=== PATIENT | female | born 1975 | race Caucasian/White ===

== ENCOUNTER 2023-09-24 14:04 | Emergency (ER) | payer SELFPAY ==
--- NOTE | ~2023-09-24 | XR_ITS ---
EXAM: XR elbow LT min 3V DATE: 09/24/2023 14:21 HISTORY: Trauma- fell landed on Lt. arm. Pain in Lt. elbow . COMPARISON: None available. FINDINGS: Normal mineralization. No fracture or dislocation. No lytic or blastic lesion. Joint space s are maintained. No erosion or periosteal change. Posterior soft tissue swelling. IMPRESSION: No acute osseous finding in the left elbow. Reviewed, dictated and finalized at location K.
[2023-09-24 14:07] VITALS: BP 112/82; PULSE 112; RESP 19; TEMP 36.6; O2SAT 98
--- NOTE | 2023-09-24 14:09 | ED.GENADULT ---
HPI - General Adult General Chief complaint: Extremity Injury, Upper Stated complaint: L arm pain Time Seen by Provider: 09/24/23 14:08 Source: patient Mode of arrival: ambulatory Limitations: no limitations History of Present Illness HPI narrative: patient states fell in the shower hit her elbow left side complains of pain redness and swelling without any laceration. took ibuprofen 2 tablets today. Denies any Chills history rheumatoid arthritis diabetes or other joint disease her HIV or loss of consciousness she said she also fell on her butt and has a bruise there but does not hurt. Denies any other injuries or other swelling. Otherwise has been eating drinking voiding and stooling fine, walking talking seeing and hearing fine without cough fever sore throat runny nose dizziness or lightheadedness other swelling lumps or bumps rash or itching or other complaints. Related Data Home Medications Medication Instructions Recorded Confirmed No Home Medications 09/24/23 09/24/23 Allergies Allergy/AdvReac Type Severity Reaction Status Date / Time gentamicin Allergy Unknown Verified 09/24/23 14:12 morphine Allergy Unknown Verified 09/24/23 14:12 Penicillins Allergy Unknown Verified 09/24/23 14:12 Sulfa (Sulfonamide Allergy Unknown Verified 09/24/23 14:12 Antibiotics) tobramycin Allergy Unknown Verified 09/24/23 14:12 Review of Systems Review of Systems: All systems reviewed & are unremarkable except as noted in HPI and below Exam Narrative: White female patient with no apparent distress.? Head normocephalic, atraumatic.? Eyes conjunctiva pink sclera nonicteric.? Extraocular movements are intact.? Ears externally normal.? Oropharynx is clear with moist mucous membranes without exudates.? Neck is supple nontender no lymphadenopathy.? Back is nontender.? Lungs are clear.? Heart is regular rate and rhythm without murmurs gallops or rubs.? Chest wall nontender.? Back is nontender. Abdomen is soft and nontender no hepatosplenomegaly or masses no CVA tenderness no abdominal bruits.? Extremities left upper extremity shows her elbow is held in 90 degree angle she can fully extended or sup an 8. Back of her elbow is swollen red and warm and tender to touch. Moving the joint does not cause increasing tenderness or pain. left shoulder is normal with full range of motion left wrist is nontender she has normal above the elbow and below the elbow. There is? Skin is warm and dry without rashes or lesions.? Neurological patient is alert and oriented x4.? Motor and sensory grossly intact.? Gait is normal. Const: General: healthy appearing Nutritional Appearance: well nourished Orientation/consciousness: patient oriented x3 Limitations: no limitations HENMT: Head: normal to inspection Course Vital Signs Vital signs: Vital Signs Temperature 36.6 C 09/24/23 14:07 Pulse Rate 112 H 09/24/23 14:07 Respiratory Rate 19 09/24/23 14:07 Blood Pressure 112/82 09/24/23 14:07 Pulse Oximetry 98 09/24/23 14:07 Oxygen Delivery Room Air 09/24/23 14:07 Temperature 36.6 C 09/24/23 14:07 Pulse Rate 112 H 09/24/23 14:07 Respiratory Rate 19 09/24/23 14:07 Blood Pressure 112/82 09/24/23 14:07 Pulse Oximetry 98 09/24/23 14:07 Oxygen Delivery Room Air 09/24/23 14:07 Medical Decision Making [facility] Narrative Medical decision making narrative: Patient was placed in Room # Two x-ray left elbow No joint abnormality no fractures soft tissue swelling per radiologist CBC WBCs H and H is normal platelets 599 Sed rate 16 CRP 2.4 BMP unremarkable Independent Historian: patient Differential Dx includes but not limited to: fracture cellulitis septic joint contusion dislocation olecranon bursitis Medications were Reviewed: meds reviewed she has been using ibuprofen Medications, treatment, ED course: Rocephin and 1 g with lidocaine ( she said she has had Keflex without any difficulty before ) Minal
[2023-09-24 14:55] LABS: Basophils Absolute Auto 0.05 K/mm3 (0.00-0.10); Basophils Percent Auto 0.5 % (0.0-1.0); Eosinophils Absolute Auto 0.18 K/mm3 (0.02-0.50); Eosinophils Percent Auto 1.7 % (1.0-6.0); Hematocrit 45.4 % (35.0-49.0); Hemoglobin 14.5 g/dL (12.0-15.0); Immature Granulocyte Absolute 0.06 K/mm3 (0.00-0.00); Immature Granulocyte Percent A 0.6 % (0.0-0.0); Immature Platelet Fraction Pct 0.7 % (1.0-7.0); Lymphocytes Absolute Auto 1.98 K/mm3 (1.10-4.50); Lymphocytes Percent Auto 19.2 % (18.0-42.0); Mean Corpuscular HGB Conc 31.9 g/dL (32-36); Mean Corpuscular Hemoglobin 28.6 pg (27.0-31.0); Mean Corpuscular Volume 89.5 fL (78.0-102.0); Mean Platelet Volume 7.8 fl (9.2-11.8); Monocytes Absolute Auto 0.83 K/mm3 (0.10-0.90); Monocytes Percent Auto 8.1 % (2.0-11.0); Neutrophils Absolute Auto 7.21 K/mm3 (1.70-7.20); Neutrophils Percent Auto 69.9 % (50.0-70.0); Platelet Count Result 599 K/mm3 (150-420); Red Blood Count 5.07 M/mm3 (4.20-5.40); Red Cell Distribution Width 13.5 % (11.6-14.4); White Blood Count 10.3 K/mm3 (4.8-10.8)
[2023-09-24 15:09] LABS: Anion Gap 10 mmol/L (8-16); Blood Urea Nitrogen 22 mg/dL (7-18); CRP 2.4 mg/dL (0.0-0.9); Calcium 8.8 mg/dL (8.5-10.1); Carbon Dioxide 30 mmol/L (21-32); Chloride 99 mmol/L (98-108); Estimated CRCL calculation 57 ml/min; Estimated Glomerular Filt Rate > 60; Glucose 136 mg/dL (70-99); Osmolality Calculated 293 mOsm/kg (285-295); Potassium 4.1 mmol/L (3.5-5.1); Sodium 139 mmol/L (136-145)
[2023-09-24] MEDS: KETOROLAC 30 MG/ML VIAL (*BKC) IM (15:48)
[2023-09-24] MEDS: cefTRIAXone 1 GM, LIDOCAINE HCL 1% LOCAL INJ 2.1 ML IM (15:49)
[2023-09-24 16:05] LABS: Erythrocyte Sedimentation Rate 16 mm/hr (0-15)
[2023-09-24 16:26] VITALS: BP 110/80; PULSE 99; RESP 20; TEMP 36.7; O2SAT 98
== END 2023-09-24 16:28 | disposition home or self-care (01) ==
PROVIDERS: Emergency Provider Emergency Medicine
DX: L03.114 Cellulitis of left upper limb (principal); M70.22 Olecranon bursitis, left elbow
CPT/HCPCS: 36415; 73080; 80048; 85025; 85055; 85652; 86140; 96372; 99284; J0696; J1885